=== PATIENT | male | born 1995 | race American Indian/Alaskan Native ===

== ENCOUNTER 2019-11-02 00:06 | Emergency (ER) | payer SELFPAY ==
[2019-11-02] MEDS ORDERED: methylPREDNISolone Sod Succinate 125 MG/2 ML INJ IV ONE (01:08)
[2019-11-02] MEDS ORDERED: diphenhydrAMINE 50 MG/ML VIAL IV ONE (01:08)
[2019-11-02] MEDS ORDERED: FAMOTIDINE 20 MG/2 ML INJ IV ONE (01:09)
--- NOTE | 2019-11-02 01:26 | Emergency Department Report ---
HPI - General Chief Complaint: Allergic Reaction Time Seen by Provider: 11/02/19 00:54 - HPI HPI: This is a 23-year-old male presents to the emergency department with a complaint of a generalized rash. He says that it first started on his legs but he now has an itchy rash to the arms, abdomen, chest, back and face. The patient denies any past medical history. He denies any known food, drug or environmental allergies. He has not taken anything for symptoms prior to presentation. He denies any fever, headache, swelling of the lips or tongue, shortness of breath, difficulty swallowing. Patient says that he was doing something at work where there was a lot of dust flying through the air and that it probably got onto his body, and the patient admits that he did not shower upon arriving home. No sick contacts at home. ED Past Medical Hx - Past Medical History Previous Medical History?: No - Surgical History Past Surgical History?: No - Social History Smoking Status: Never Smoker Substance Use Type: None - Medications Home Medications: Home Medications Medication Instructions Recorded Confirmed Last Taken Type Famotidine [Pepcid] 20 mg PO BID #8 tablet 11/02/19 Unknown Rx diphenhydrAMINE [Benadryl CAP] 25 mg PO Q8HR PRN #9 capsule 11/02/19 Unknown Rx predniSONE [Deltasone] 20 mg PO BID #8 tab 11/02/19 Unknown Rx ED Review of Systems ROS: Stated complaint: BODY RASH Other details as noted in HPI Comment: All other systems reviewed and negative Constitutional: denies: chills, fever Respiratory: denies: cough, shortness of breath Cardiovascular: denies: chest pain, palpitations Gastrointestinal: denies: abdominal pain Musculoskeletal: denies: back pain, arthralgia Skin: rash, pruritus Neurological: denies: headache, weakness Physical Exam - Physical Exam Vital Signs: Vital Signs 11/02/19 00:34 Temperature 98.0 F Pulse Rate 65 Respiratory 18 Rate Blood Pressure 110/56 O2 Sat by Pulse 100 Oximetry Physical Exam: GENERAL: The patient is well-developed well-nourished. HENT: Normocephalic. Atraumatic. Patient has moist mucous membranes. Oropharynx is clear. No swelling of the tongue or throat. No drooling or trismus. EYES: Extraocular motions are intact. NECK: Supple. Trachea is midline. CHEST/LUNGS: Clear to auscultation. There is no respiratory distress noted. HEART/CARDIOVASCULAR: Regular. There is no tachycardia. ABDOMEN: Abdomen is soft, nontender. Patient has normal bowel sounds. SKIN: Skin is warm and dry. Patient has grouped urticarial lesions to the bilateral hands, upper extremities, abdomen, chest, back and face. NEURO: The patient is awake, alert, and oriented. The patient is cooperative. Normal speech. MUSCULOSKELETAL: There is no tenderness or deformity. ED Course Vital Signs 11/02/19 00:34 Temperature 98.0 F Pulse Rate 65 Respiratory 18 Rate Blood Pressure 110/56 O2 Sat by Pulse 100 Oximetry ED Medical Decision Making - Medical Decision Making This patient presents with a pruritic urticarial rash that appears most consistent with allergic reaction. No signs of angioedema or anaphylaxis. He was given Solu-Medrol, Pepcid and Benadryl. He was reevaluated multiple times over about 2.5 hours and is feeling greatly improved. The urticaria has started to decrease. His vital signs have been reassuring throughout his ED course. He will be discharged home to follow-up with primary care and dermatology. He will return to the ER with any worsening of his symptoms or with any acute distress. Critical Care Time: No Critical care attestation.: If time is entered above; I have spent that time in minutes in the direct care of this critically ill patient, excluding procedure time. ED Disposition Clinical Impression: Rash and nonspecific skin eruption, Urticaria Allergic reaction Qualifiers: Encounter type: initial encounter Qualified Code(s): T78.40XA - Allergy, unspecified, initial encounter Disposition: DC-01 TO HOME OR SELFCARE Is pt being admited?: No Condition: Stable Instructions: Urticaria (ED), Acute Rash (ED) Additional Instructions: Please follow-up with a primary care physician. I also recommend that you follow-up with a microfiche duplicator and I have given you a referral for 2 different local microfiche duplicator. Take the medications as prescribed. Return to the emergency department with any worsening of your symptoms or with any acute distress. Prescriptions: diphenhydrAMINE [Benadryl CAP] 25 mg PO Q8HR PRN #9 capsule PRN Reason: Allergic Reaction predniSONE [Deltasone] 20 mg PO BID #8 tab Famotidine [Pepcid] 20 mg PO BID #8 tablet Referrals: VALERIE FABIAN MD [Staff Physician] - 2-3 Days PAIGE WEBSTER MD [Referring] - 2-3 Days Time of Disposition: 02:12
[2019-11-02 01:43] VITALS: BP 123/53
== END 2019-11-02 02:48 | disposition home or self-care (01) ==
LOC: ED 00:06
DX: T78.40XA Allergy, unspecified, initial encounter (principal); L50.9 Urticaria, unspecified; R21 Rash and other nonspecific skin eruption; Z79.899 Other long term (current) drug therapy; X58.XXXA Exposure to other specified factors, initial encounter
CPT/HCPCS: 96374; 96375; 99282; J1200; J2930

== ENCOUNTER 2020-02-24 13:47 | Emergency (ER) | payer SELFPAY ==
[2020-02-24 13:51] VITALS: BP 131/68
--- NOTE | 2020-02-24 13:58 | Event Note ---
ED Screening Note Date of service: 02/24/20 Time: 13:58 ED Screening Note: Patient complains of piece of wood pallet being broken off into his right calf x last night. This initial assessment/diagnostic orders/clinical plan/treatment(s) is/are subject to change based on patients health status, clinical progression and re- assessment by fellow clinical providers in the ED. Further treatment and workup at subsequent clinical providers discretion. Patient/guardian urged not to elope from the ED as their condition may be serious if not clinically assessed and managed. Initial orders include: xr
--- NOTE | 2020-02-24 15:04 | XRay Report ---
RIGHT TIBIA AND FIBULA 2 VIEWS INDICATION: wood FB in calf. COMPARISON: None. IMPRESSION: No acute osseous or soft tissue abnormality. No radiopaque foreign body is detected i n the soft tissues on x-ray. Signer Name: Thor Trejo Jr, MD Signed: 02/24/2020 2:59 PM Workstation Name: [id number]
[2020-02-24] MEDS ORDERED: DIPHtheria,PERTUSSIS(ACELL),TETANUS VACCINE/PF 0.5 ML VIAL IM ONE (17:03)
--- NOTE | 2020-02-24 17:03 | Emergency Department Report ---
- General Chief Complaint: Extremity Injury, Lower Stated Complaint: PIECE OF WOOD IN CALF Time Seen by Provider: 02/24/20 13:57 Source: patient Mode of arrival: Wheelchair Limitations: No Limitations - History of Present Illness Initial Comments: Patient is a 24-year-old male who presents emergency room complaints of a foreign body present in the right calf that occurred last night. Patient states that he was at work and that a pallet fell onto his calf and he feels like a piece of wood is still stuck inside. He is ambulatory with discomfort. He states he has a foreign body sensation. He denies any drainage or bleeding. He denies any fever, chills, vomiting, diarrhea. He denies any numbness or weakness. No past medical history. No allergies to medications. He is unsure of his last tetanus immunization. - Related Data Previous Rx's Medication Instructions Recorded Last Taken Type Famotidine [Pepcid] 20 mg PO BID #8 tablet 11/02/19 Unknown Rx diphenhydrAMINE [Benadryl CAP] 25 mg PO Q8HR PRN #9 capsule 11/02/19 Unknown Rx predniSONE [Deltasone] 20 mg PO BID #8 tab 11/02/19 Unknown Rx Naproxen [EC-Naprosyn] 500 mg PO BID PRN #14 tablet. 02/24/20 Unknown Rx cephALEXin [Keflex] 500 mg PO QID 7 Days #28 cap 02/24/20 Unknown Rx Allergies Allergy/AdvReac Type Severity Reaction Status Date / Time No Known Allergies Allergy Unverified 11/02/19 00:45 ED Review of Systems ROS: Stated complaint: PIECE OF WOOD IN CALF Other details as noted in HPI Comment: All other systems reviewed and negative ED Past Medical Hx - Past Medical History Previous Medical History?: No - Surgical History Past Surgical History?: No - Social History Smoking Status: Never Smoker Substance Use Type: None - Medications Home Medications: Home Medications Medication Instructions Recorded Confirmed Last Taken Type Famotidine [Pepcid] 20 mg PO BID #8 tablet 11/02/19 Unknown Rx diphenhydrAMINE [Benadryl CAP] 25 mg PO Q8HR PRN #9 capsule 11/02/19 Unknown Rx predniSONE [Deltasone] 20 mg PO BID #8 tab 11/02/19 Unknown Rx Naproxen [EC-Naprosyn] 500 mg PO BID PRN #14 tablet. 02/24/20 Unknown Rx cephALEXin [Keflex] 500 mg PO QID 7 Days #28 cap 02/24/20 Unknown Rx ED Physical Exam - General Limitations: No Limitations General appearance: alert, in no apparent distress - Head Head exam: Present: atraumatic, normocephalic - Eye Eye exam: Present: normal appearance - ENT ENT exam: Present: mucous membranes moist - Respiratory Respiratory exam: Absent: respiratory distress, accessory muscle use - Extremities Exam Extremities exam: Present: other (abrasion present to the right calf, there is a palpable linear foreign body present underneath the surface of the skin, unable to visually see foreign body, no bleeding, FROM of the RLE, neurovascularly intact) - Neurological Exam Neurological exam: Present: alert, oriented X3 - Psychiatric Psychiatric exam: Present: normal affect, normal mood - Skin Skin exam: Present: warm, dry ED Course Vital Signs 02/24/20 13:50 Temperature 98.1 F Pulse Rate 66 Respiratory 16 Rate Blood Pressure 131/68 [Right] O2 Sat by Pulse 100 Oximetry - Procedure Description Procedures done: Foreign body removal right calf. Skin prepped with Betadine, sterile drapes applied, sterile gloves worn, 5 cc of 2% lidocaine without epinephrine used as anesthetic, Betadine prep again, 1 cm incision made with 11 blade, forceps used to remove blue-colored wooden piece that is approximately 5 cm in length, irrigated with saline, patient tolerated well, no complications, bleeding controlled, sterile dressing applied ED Medical Decision Making - Radiology Data Radiology results: report reviewed Ordering Physician: KOURTNEY HINTON Date of Service: 02/24/20 Procedure(s): XR tibia fibula 2V RT Accession Number(s): [id number] cc: KOURTNEY HINTON Fluoro Time In Minutes: RIGHT TIBIA AND FIBULA 2 VIEWS INDICATION: wood FB in calf. COMPARISON: None. IMPRESSION: No acute osseous or soft tissue abnormality. No radiopaque foreign body is detected in the soft tissues on x-ray. Signer Name: Thor Arora Jr, MD Signed: 02/24/2020 2:59 PM Workstation Name: [id number] Transcribed By: TTR Dictated By: THOR ARORA JR, MD Electronically Authenticated By: THOR ARORA JR, MD Signed Date/Time: 02/24/20 5630 DD/ 58 TD/TT: - Medical Decision Making Patient is a 24-year-old male who presents emergency room complaints of a foreign body present in the right calf that occurred last night. Patient states that he was at work and that a pallet fell onto his calf and he feels like a piece of wood is still stuck inside. He is ambulatory with discomfort. He states he has a foreign body sensation. He denies any drainage or bleeding. He denies any fever, chills, vomiting, diarrhea. He denies any numbness or weakness. No past medical history. No allergies to medications. He is unsure of his last tetanus immunization. VSS. on exam:abrasion present to the right calf, there is a palpable linear foreign body present underneath the surface of the skin, unable to visually see foreign body, no bleeding, FROM of the RLE, neurovascularly intact. XR right tib fib: IMPRESSION: No acute osseous or soft tissue abnormality. No radiopaque foreign body is detected in the soft tissues on x-ray. Foreign body removal per procedure note without complication. Patient given Tdap. Patient given prescription for naproxen and Keflex. Advised patient Please take medication as prescribed. Please keep area clean, dry, covered. Wash with antibacterial soap and water and pat dry. No hot tub or pool. Follow-up with your primary care doctor for reexamination. Return to emergency room immediately for any new or worsening symptoms. Critical care attestation.: If time is entered above; I have spent that time in minutes in the direct care of this critically ill patient, excluding procedure time. ED Disposition Clinical Impression: Foreign body of right lower leg Qualifiers: Encounter type: initial encounter Qualified Code(s): S80.851A - Superficial foreign body, right lower leg, initial encounter Disposition: DC-01 TO HOME OR SELFCARE Is pt being admited?: No Does the pt Need Aspirin: No Condition: Stable Instructions: Skin Foreign Body Additional Instructions: Please take medication as prescribed. Please keep area clean, dry, covered. Wash with antibacterial soap and water and pat dry. No hot tub or pool. Follow-up with your primary care doctor for reexamination. Return to emergency room immediately for any new or worsening symptoms. Prescriptions: Naproxen [EC-Naprosyn] 500 mg PO BID PRN #14 tablet.dr PRN Reason: pain cephALEXin [Keflex] 500 mg PO QID 7 Days #28 cap Referrals: PRIMARY CAREMD [Primary Care Provider] - 2-3 Days ARNAV MACIAS MD [Staff Physician] - 2-3 Days [facility] [Provider Group] - 2-3 Days Time of Disposition: 17:20 Print Language: YI
[2020-02-24] MEDS ORDERED: LIDOCAINE (2%) 20 MG/1 ML VIAL 20 ML MDV INFILTRATI ONE (17:15)
== END 2020-02-24 18:14 | disposition home or self-care (01) ==
LOC: ED 13:47
DX: S80.851A Superficial foreign body, right lower leg, initial encounter (principal); Z79.899 Other long term (current) drug therapy; W45.8XXA Other foreign body or object entering through skin, initial encounter; Y93.89 Activity, other specified; Y92.89 Other specified places as the place of occurrence of the external cause; Y99.8 Other external cause status
CPT/HCPCS: 90471; 90715; 99283

== ENCOUNTER 2021-02-25 17:19 | Emergency (ER) | payer SELFPAY | END 2021-02-25 18:00 | disposition left against medical advice (07) | LOC: ED 17:19 | DX: Z00.00 Encounter for general adult medical examination without abnormal findings (principal); Z53.21 Procedure and treatment not carried out due to patient leaving prior to being seen by health care provider ==

== ENCOUNTER 2021-09-22 15:34 | Emergency (ER) | payer SELFPAY ==
[2021-09-22 16:44] LABS: Basophils # (Auto) 0.1 K/mm3 (0.0-0.1); Basophils % (Auto) 0.6 % (0.0-1.8); Eosinophils # (Auto) 0.1 K/mm3 (0.0-0.4); Eosinophils % (Auto) 0.7 % (0.0-4.3); Hematocrit 43.1 % (35.5-45.6); Hemoglobin 14.6 gm/dl (11.8-15.2); Lymphocytes % (Auto) 23.7 % (13.4-35.0); Mean Corpuscular HGB Conc 34 % (32-34); Mean Corpuscular Volume 91 fl (84-94); Monocytes # (Auto) 0.5 K/mm3 (0.0-0.8); Monocytes % (Auto) 6.1 % (0.0-7.3); Platelet Count 247 K/mm3 (140-440); Red Blood Count 4.72 M/mm3 (3.65-5.03); Red Cell Distribution Width 12.8 % (13.2-15.2)
[2021-09-22 17:05] LABS: Alanine Aminotransferase 17 units/L (7-56); Albumin 4.8 g/dL (3.9-5); BUN/Creatinine Ratio 11; Blood Urea Nitrogen 12 mg/dL (9-20); Calcium 9.9 mg/dL (8.4-10.2); Hemolysis Index 4
[2021-09-22] MEDS ORDERED: KETOROLAC 10 MG TAB PO ONE (17:38)
[2021-09-22] MEDS ORDERED: ONDANSETRON 4 MG ODT TAB PO ONE (17:38)
[2021-09-22] MEDS ORDERED: DICYCLOMINE 20 MG/2 ML INJ IM ONE (17:38)
[2021-09-22 18:07] LABS: Mucus,Urine FEW /HPF
[2021-09-22 18:11] LABS: Bilirubin,Urine Negative (Negative); Blood,Urine Negative (Negative); Color,Urine Yellow (Yellow); PH,Urine 6.5 (5.0-7.0); Urobilinogen,Urine < 2.0 mg/dL (<2.0)
--- NOTE | 2021-09-22 18:40 | Emergency Department Report ---
ED Abdominal Pain HPI - General Chief Complaint: Abdominal Pain Stated Complaint: STOMACH PAIN Time Seen by Provider: 09/22/21 17:22 Source: patient Mode of arrival: Ambulatory Limitations: No Limitations - History of Present Illness Initial Comments: 25 yo black male with no pmh presents to ed for evaluation of one day history of n/v and abdominal pain and cramping. He states that he had some food from a restaurant the previous night then woke up the next morning with his symptoms. He denies fever, dysuria, and penile discharge. MD Complaint: abdominal pain -: days(s) (1) Location: epigastric Radiation: none Migration to: no migration Severity scale (0 -10): 8 Quality: cramping Consistency: constant Context: possible food poisoning Associated Symptoms: nausea, vomiting, diarrhea. denies: fever, chills, dysuria, hematemesis, hematochezia, melena, hematuria, anorexia, syncope - Related Data Previous Rx's Medication Instructions Recorded Last Taken Type Famotidine [Pepcid] 20 mg PO BID #8 tablet 11/02/19 Unknown Rx diphenhydrAMINE [Benadryl CAP] 25 mg PO Q8HR PRN #9 capsule 11/02/19 Unknown Rx predniSONE [Deltasone] 20 mg PO BID #8 tab 11/02/19 Unknown Rx Naproxen [EC-Naprosyn] 500 mg PO BID PRN #14 tablet.dr 02/24/20 Unknown Rx cephALEXin [Keflex] 500 mg PO QID 7 Days #28 cap 02/24/20 Unknown Rx Dicyclomine [Bentyl] 20 mg PO QID PRN #30 tablet 09/22/21 Unknown Rx Ondansetron [Zofran Odt] 4 mg PO Q8HR PRN #12 tab.rapdis 09/22/21 Unknown Rx Allergies Allergy/AdvReac Type Severity Reaction Status Date / Time No Known Allergies Allergy Unverified 11/02/19 00:45 ED Review of Systems ROS: Stated complaint: STOMACH PAIN Other details as noted in HPI Comment: All other systems reviewed and negative Constitutional: denies: chills, fever Respiratory: denies: shortness of breath Cardiovascular: denies: chest pain, palpitations Gastrointestinal: abdominal pain, nausea, vomiting, diarrhea. denies: hematemesis, melena, hematochezia Genitourinary: denies: urgency, dysuria, frequency, hematuria, discharge, testicular pain Musculoskeletal: denies: back pain Neurological: denies: headache, weakness ED Past Medical Hx - Past Medical History Previous Medical History?: No - Surgical History Past Surgical History?: No - Social History Smoking Status: Never Smoker Substance Use Type: None - Medications Home Medications: Home Medications Medication Instructions Recorded Confirmed Last Taken Type Famotidine [Pepcid] 20 mg PO BID #8 tablet 11/02/19 Unknown Rx diphenhydrAMINE [Benadryl CAP] 25 mg PO Q8HR PRN #9 capsule 11/02/19 Unknown Rx predniSONE [Deltasone] 20 mg PO BID #8 tab 11/02/19 Unknown Rx Naproxen [EC-Naprosyn] 500 mg PO BID PRN #14 tablet.dr 02/24/20 Unknown Rx cephALEXin [Keflex] 500 mg PO QID 7 Days #28 cap 02/24/20 Unknown Rx Dicyclomine [Bentyl] 20 mg PO QID PRN #30 tablet 09/22/21 Unknown Rx Ondansetron [Zofran Odt] 4 mg PO Q8HR PRN #12 tab.rapdis 09/22/21 Unknown Rx ED Physical Exam - General Limitations: No Limitations General appearance: alert, in no apparent distress - Head Head exam: Present: atraumatic, normocephalic - Eye Eye exam: Present: normal appearance. Absent: conjunctival injection - ENT ENT exam: Present: normal exam, normal orophraynx - Neck Neck exam: Present: normal inspection, full ROM. Absent: tenderness, lymphadenopathy - Respiratory Respiratory exam: Present: normal lung sounds bilaterally. Absent: respiratory distress, wheezes, rales, rhonchi, stridor, chest wall tenderness - Cardiovascular Cardiovascular Exam: Present: regular rate, normal heart sounds - GI/Abdominal GI/Abdominal exam: Present: soft, normal bowel sounds. Absent: distended, tenderness, guarding, rebound, rigid - Extremities Exam Extremities exam: Present: normal inspection, full ROM, normal capillary refill. Absent: tenderness, pedal edema, joint swelling, calf tenderness - Back Exam Back exam: Present: normal inspection. Absent: CVA tenderness (R), CVA tenderness (L) - Neurological Exam Neurological exam: Present: alert, oriented X3 - Psychiatric Psychiatric exam: Present: normal affect, normal mood - Skin Skin exam: Present: warm, dry, intact, normal color ED Course Vital Signs 09/22/21 09/22/21 16:21 18:45 Temperature 97.2 F L 97.8 F Pulse Rate 64 78 Respiratory 18 20 Rate Blood Pressure 139/85 126/72 [Left] O2 Sat by Pulse 100 96 Oximetry - Reevaluation(s) Reevaluation #1: 09/22/21 18:37 Nausea vomiting abdominal pain resolved. Patient states that he feels much better. ED Medical Decision Making - Lab Data Result diagrams: 09/22/21 16:29 09/22/21 16:29 - Medical Decision Making 25 yo black male with no pmh presents to ed for evaluation of one day history of n/v and abdominal pain and cramping. He states that he had some food from a restaurant the previous night then woke up the next morning with his symptoms. He denies fever, dysuria, and penile discharge. Physical exam and work up unremarkable. Symptoms resolved after medication and likely secondary to gastroenteritis related to food poisoning. He will to discharged home with zofran and bentyl to use as needed and advised to follow up with his pcp if worsening symptoms and return to ED as needed. He verbalized understanding of and agreement with plan of care. Critical care attestation.: If time is entered above; I have spent that time in minutes in the direct care of this critically ill patient, excluding procedure time. ED Disposition Clinical Impression: Gastroenteritis Disposition: 01 HOME / SELF CARE / HOMELESS Is pt being admited?: No Does the pt Need Aspirin: No Condition: Stable Instructions: Viral Gastroenteritis, Adult, [id number], Food Choices to Help Relieve Diarrhea, Adult Additional Instructions: Take medications as prescribed. Follow-up with primary care provider if worsening symptoms. Return to the emergency department as needed. Prescriptions: Dicyclomine [Bentyl] 20 mg PO QID PRN #30 tablet PRN Reason: Pain, Moderate (4-6) Ondansetron [Zofran Odt] 4 mg PO Q8HR PRN #12 tab.rapdis PRN Reason: Nausea And Vomiting Referrals: ARNAV MACIAS MD [Staff Physician] - 3-5 Days Forms: Work/School Release Form(ED) Time of Disposition: 18:39
[2021-09-22 18:46] VITALS: BP 126/72
== END 2021-09-22 18:44 | disposition home or self-care (01) ==
LOC: ED 15:34
DX: K52.9 Noninfective gastroenteritis and colitis, unspecified (principal)
CPT/HCPCS: 36415; 80053; 81001; 83690; 85025; 96372; 99283; J0500; J3490; Q0162